=== PATIENT | male | born 1955 | race Caucasian/White ===

== ENCOUNTER 2016-06-11 11:11 | Outpatient (CLI) | payer OTHER ==
--- NOTE | 2016-06-11 12:30 | DIAGNOSTIC IMAGING REPORT ---
PROCEDURE: XR LUMBAR SPINE 5 VIEWS INDICATION: BILATERAL LOW BACK PAIN WITH RIGHT-SIDED SCIATICA TECHNIQUE: Five views. COMPARISON: None. FINDINGS: There is a severe spondylosis at L 2-3 with large posterior osteophytes. There is also spondylosis and a grade 1 spondylolisthesis at L4-5. IMPRESSION: 1. Severe spondylosis L2-3. 2. Spondylosis and a grade 1 spondylolisthesis at L4-5.
== END 2016-06-11 23:00 ==
LOC: XR SRH 11:11
DX: M47.816 Spondylosis without myelopathy or radiculopathy, lumbar region (principal); M43.16 Spondylolisthesis, lumbar region

== ENCOUNTER 2016-06-23 16:26 | Emergency (ER) | payer OTHER ==
--- NOTE | 2016-06-23 17:22 | DIAGNOSTIC IMAGING REPORT ---
PROCEDURE: XR CHEST 1 VIEW INDICATION: RUE WEAKNESS TECHNIQUE: Portable AP view 04:56 p.m. COMPARISON: None. FINDINGS: Lungs are clear. Heart and mediastinum are normal. Thorax is normal. Two anchors project for the left humerus IMPRESSION: 1. Negative chest.
--- NOTE | 2016-06-23 17:32 | DIAGNOSTIC IMAGING REPORT ---
PROCEDURE: CT HEAD WITHOUT CONTRAST INDICATION: Right-sided numbness and weakness x 2 days. TECHNIQUE: Noncontrast axial images with sagittal and coronal reformations. COMPARISON: None. FINDINGS: Normal sulci and ventricular system. Mild of white matter chronic ischemic changes. No evidence of acute intracranial process. Opacified left mastoid and partial opacification of the right mastoid. Mild left maxillary sinus disease. IMPRESSION: 1. No acute intracranial abnormality 2. Mild white matter chronic ischemic changes 3. Bilateral mastoid opacification suggestive of mastoiditis 4. Findings discussed with Dr. Ureña at 05:15 p.m.[facility] Standard Time
--- NOTE | 2016-06-23 17:32 | DIAGNOSTIC IMAGING REPORT ---
PROCEDURE: CT HEAD WITHOUT CONTRAST INDICATION: Right-sided numbness and weakness x 2 days. TECHNIQUE: Noncontrast axial images with sagittal and coronal reformations. COMPARISON: None. FINDINGS: Normal sulci and ventricular system. Mild of white matter chronic ischemic changes. No evidence of acute intracranial process. Opacified left mastoid and partial opacification of the right mastoid. Mild left maxillary sinus disease. IMPRESSION: 1. No acute intracranial abnormality 2. Mild white matter chronic ischemic changes 3. Bilateral mastoid opacification suggestive of mastoiditis 4. Findings discussed with Dr. Ureña at 05:15 p.m.[facility] Standard Time
--- NOTE | 2016-06-23 18:53 | DIAGNOSTIC IMAGING REPORT ---
PROCEDURE: XR CERVICAL SPINE 2 OR 3 VIEW INDICATION: PARESTHESIAS TECHNIQUE: Four views of the cervical spine were obtained. COMPARISON: None. FINDINGS: Cervical vertebral bodies are intact without fracture. There is mild to moderate anterior endplate spurring and uncovertebral joint hypertrophy from C4-C7, particularly severe at C5-6 and C6-7. There is severe disc space loss at C5-6 and C6-7 with endplate irregularity and sclerosis at these levels. Loss of normal cervical lordosis with slight retrolisthesis of C5 and C6 and anterolisthesis of C4-5. Mild disc height loss at C3-4 and C4-5. No significant scoliotic curvature. Moderate facet hypertrophy on the left at C4-5 and C5-6. Mild right carotid calcific atherosclerosis. No suspicious prevertebral soft tissue swelling. Patent airway. IMPRESSION: 1. Straightening of the normal cervical lordosis may be due to muscle spasm. 2. Slight kyphosis at the C5 level is likely secondary to chronic facet degeneration. 3. Severe disc and endplate degeneration at C5-6 and C6-7. 4. MRI recommended for patient's acute upper extremity radiculopathy.
--- NOTE | 2016-06-23 19:00 | ED NURSING NOTES ---
Clinical Report - Nurses [facility] [place] [address] 06/23/2016 16:27 Patient: AJIT HUMPHREYS TRIAGE Triage time 16:34. Acuity: LEVEL 4. Chief Complaint: RIGHT UPPER EXTREMITY TINGLING. 16:34 06/23/16. 16:34 06/23/16. Alert. No acute distress. ( Right arm tingling that occurred either last night or this AM. Pt states he possibly slept wrong. This pain might be from his sciatic pain that occurred last night radiating to right arm). SEPSIS SCREEN: Sepsis Screen. Negative (no infection suspected/documented). CHADWICK COMA SCORE: [place] Coma Scale: 15- eyes open spontaneously (4); best verbal response- oriented x 4 (5); best motor response- obeys commands (6). --16:41 Yanick Bear R.N. 16:34 06/23/16. BP: 188/99. HR: 76. RR: 15. O2 saturation: 100% on room air. Temp: 98.1 F (oral). --16:41 Yanick Bear R.N. Acuity: LEVEL 3. --16:41 Yanick Bear R.N. Weight: 106.5 kg stated. Height/Length: 73 inches Per Patient. BMI: 31. --16:38 Yanick Bear R.N. Medications BP MED . --16:40 Yanick Bear R.N. Sleep Medicine Oral. --16:40 Yanick Bear R.N. Medication/allergy information source: the patient. --16:41 Yanick Bear R.N. Allergies None. --16:40 Yanick Bear R.N. History Arrived by private vehicle. Historian: patient. Unaccompanied. Primary physician ([facility]). 16:34 06/23/16. No injury occurred. This occurred at an unknown time (Either last night or this AM). He has had numbness (Right wrist). Treatment MANAGER TITLE: None. PAST MEDICAL HX: Tetanus status: up-to-date. Immunizations: up-to-date. SOCIAL HX: Never smoker. No alcohol use or drug use. No infectious disease exposure. ABUSE ASSESSMENT: No report of abuse. FALL RISK ASSESSMENT: Fall risk assessment completed. No fall risk identified. NUTRITIONAL RISK ASSESSMENT: The nutritional risk assessment revealed no deficiencies. FUNCTIONAL ASSESSMENT: Functional assessment: no impairments noted. LEARNING NEEDS ASSESSMENT: The learning needs assessment revealed no barriers. SKIN INTEGRITY ASSESSMENT: Skin integrity risk assessment completed. No skin integrity risk identified. --16:41 Yanick Bear R.N. PROBLEMS: Hypertension. --16:40 Yanick Bear R.N. ADDITIONAL SURGERIES: Bicept Surgery. Laminectomy. Rotator Cuff Surgery. --16:40 Yanick Bear R.N. Assessment 16:34 06/23/16. --16:41 Yanick Bear R.N. Interventions 16:34 06/23/16. 16:34 06/23/16. ID and allergy band on patient. To treatment room. --16:41 Yanick Bear R.N. PHYSICAL ASSESSMENT 16:41 06/23/16. Ambulatory to room. GENERAL / NEURO / PSYCH: Oriented X 4. Alert. Appears in no acute distress. EXTREMITIES: Neuro-vascular status intact to the extremity. No upper extremity edema. Skin is non-tender on the extremities. Right wrist: (weakness). ( Left power ballast machine operator stronger than right power ballast machine operator). --16:41 Yanick Bear R.N. NURSING PROGRESS NOTES 16:42 06/23/16. The plan of care for this patient has been created. Cold pack applied. Neuro-vascular extremity check. Patient gowned. Reassurance given. Two patient identifiers checked. Call light placed in reach. Side rails up x 2. Bed placed in lowest position. Brakes of bed on. --16:42 Yanick Bear R.N. 16:42 06/23/16. Patient ready for evaluation- chart flagged and notification provided. --16:42 Yanick Bear R.N. 16:44 06/23/16. EKG time: (1646 PM). --16:44 Yanick Bear R.N. 16:44 06/23/16. ( MD aware of right hand weakness, nother deficits noted). --16:44 Yanick Bear R.N. 16:45 06/23/2016 Site #1 started via IV in the right antecubital space with an 18g angiocath; one attempt. Blood drawn: rainbow set. Labeled in the presence of the patient and sent to the lab. Saline lock flushed with 10 mL saline. --16:45 Yanick Bear R.N. 17:05 06/23/16. Patient transported to [place] by stretcher with [employer]. --17:05 Yanick Bear R.N. 17:43 06/23/16. Cardiac rhythm: normal sinus rhythm. --17:43 Yanick Bear R.N. 17:42 06/23/16. BP: 172/88. HR: 71. RR: 16. O2 saturation: 99% on room air. --17:43 Yanick Bear R.N. 18:46 06/23/16. --18:46 Yanick Bear R.N. 18:45 06/23/16. BP: 143/72. HR: 71. RR: 14. O2 saturation: 99%. --18:46 Yanick Bear R.N. DISPOSITION / DISCHARGE 19:06/23/2016 Site #1 removed upon discharge. Catheter intact. Bandage applied. --19:08 Yanick Bear R.N. 19:06/23/16. The goals identified in the patient's plan of care were met. No learning barriers present. Discharge instructions provided and reviewed with the patient. Reviewed warnings. Reviewed medication(s). Treatments reviewed. Patient verbalized understanding. Written instructions provided in Khmer. The patient was discharged by the physician. He was discharged home. He left the Emergency Department ambulatory and via private vehicle. Patient driving. FALL RISK ASSESSMENT: Fall risk assessment completed. No fall risk identified. --19:09 Yanick Bear R.N. 18:45 06/23/16. BP: 143/72. HR: 71. RR: 14. O2 saturation: 99%. --19:09 Yanick Bear R.N. 19:06/23/16. Departure time: 19:09. --19:09 Yanick Bear R.N. Locked/Released at 06/23/2016 19:11 by Yanick Bear R.N.
--- NOTE | 2016-06-23 19:00 | ED ORDER SUMMARY ---
..... Patient: AJIT HUMPHREYS OrderSheet [facility] VisitID: [id number] [place] [address] 61y, M Registration Date/Time: 06/23/2016 ORDER SHEET Weight: 106.5 kg (stated) Allergies: None GENERAL ORDERS: CBC w Diff Urgent (16:43 06/23/2016 JBoardley R.N. per protocol) (Ack 16:45 ADELAIDAoerner) (16:54 JBoardley R.N.) CMP Urgent (16:43 06/23/2016 JBoardley R.N. per protocol) (Ack 16:45 ADELAIDAoefátimaner) (16:54 JBoardley R.N.) POC Glucose (16:43 06/23/2016 JBoardley R.N. per protocol) (16:45 JBoardley R.N.) EKG - ER Stat (16:43 06/23/2016 JBoardley R.N. per protocol) (16:45 JBoardley R.N.) Chest 1V Urgent (16:49 06/23/2016 Jazmine MUNOZ) (Ack 16:56 Jeremiah) (17:06 JBoargomezy R.N.) University Relations Director (Continuous) (16:49 06/23/2016 Jazmine MUNOZ) (16:51 CONST[address]bel R.N.) CT Head wo Cont Urgent (16:49 06/23/2016 Jazmine MUNOZ) (Ack 16:56 Jeremiah) (17:06 JBmaksimy R.N.) PT with INR Urgent (16:49 06/23/2016 Jazmine MUNOZ) (Ack 16:56 Jeremiah) (17:06 Ish R.N.) PTT Urgent (16:49 06/23/2016 Jazmine MUNOZ) (Ack 16:56 Jeremiah) (17:06 Ish R.N.) Amylase Urgent (16:49 06/23/2016 Jazmine MUNOZ) (Ack 16:56 Jeremiah) (17:06 Ish R.N.) Lipase Urgent (16:49 06/23/2016 Jazmine MUNOZ) (Ack 16:56 ADELAIDAoevilma) (17:06 Ish R.N.) CPK Urgent (16:49 06/23/2016 Jazmine MUNOZ) (Ack 16:56 ADELAIDAoeredwardo) (17:06 Ish R.N.) Troponin-I Urgent (16:49 06/23/2016 Jazmine MUNOZ) (Ack 16:56 ADELAIDAoeredwardo) (17:06 Ish R.N.) Oxygen (2 L/min) (NC) (16:49 06/23/2016 Jazmine MUNOZ) (16:51 Jovon R.N.) Pulse oximeter (16:49 06/23/2016 Jazmine MUNOZ) (16:51 Jovon R.N.) EKG - ER Stat (16:49 06/23/2016 Jazmine MUNOZ) (16:51 Jovon R.N.) Cervical Spine 2 or 3V Urgent (17:53 06/23/2016 Jazmine MUNOZ) (Ack 17:57 ADELAIDAoevilma) (18:31 MCampbell) MEDICATION ORDERS: IV FLUIDS: IV Saline Lock (16:43 06/23/2016 Ish R.N. per protocol) (16:45 Ish R.N.) ORDER SHEET NOTES: [Electronically signed by Yanick Bear R.N. (19:11 06/23/2016)] [Electronically signed by Shmuel Ureña MD (09:17 06/25/2016)] [Electronically locked/signed by Yanick Bear R.N. (19:11 06/23/2016)]
--- NOTE | 2016-06-23 19:00 | ED CLINICAL REPORT ---
Clinical Report - Physicians/Mid Levels [facility] [address] [place] [address] 06/23/2016 16:27 Patient: AJIT HUMPHREYS Time Seen: 16:48. Arrived- By private vehicle. Historian- patient. HISTORY OF PRESENT ILLNESS Chief Complaint: WEAKNESS and PARESTHESIA. The patient has had new onset of constant weakness of the right arm (moderate) and right hand (moderate). He has had new onset of tingling of the right hand (moderate). No impaired speech or swallowing, visual disturbance or recent fall. No difficulty walking. This started last night and is still present. It was abrupt in onset and has been constant. At its maximum deficit described as moderate. When seen in the E.D.,deficit described as moderate. No dizziness. (The patient has some pain in his neck that is radiating down into his right arm. He thinks that he may have "slept on it wrong."). REVIEW OF SYSTEMS No chills, fever, sweats, calf pain or chest pain. No cough, difficulty breathing, pedal edema, palpitations or abdominal pain. No dizziness or headache. He has had lower back pain (chronically). It has been similar to previous symptoms. He reports that arrangements are being made for an MRI of his low back pain and "sciatica". All systems otherwise negative, except as recorded above. SOCIAL HISTORY Never smoker. No alcohol use or drug use. FAMILY HISTORY Denies family medical history. ADDITIONAL NOTES The nursing notes have been reviewed. PHYSICAL EXAM Vital Signs: 06/23/2016 16:34 BP: 188/99. HR: 76. RR: 15. O2 saturation: 100%. Temp: 98.1 F. Have been reviewed. Appearance: Alert. Eyes: Pupils equal, round and reactive to light. ENT: Airway intact. Pharynx normal. Neck: Normal inspection. Neck supple. No meningeal signs or carotid bruit. CVS: Normal heart rate and rhythm. Heart sounds normal. Respiratory: No respiratory distress. Breath sounds normal. Abdomen: Soft and nontender. No organomegaly. Back: Normal inspection. Skin: Skin warm and dry. Normal skin color. Normal skin turgor. Extremities: Extremities exhibit normal ROM. No calf tenderness. No lower extremity edema. Neuro: Alert. Oriented X 3. Mood/affect normal. Speech normal. Cranial nerves normal (as tested). He has had pain-related weakness of the right arm (moderate) and right hand (moderate). No sensory deficit. LABS, X-RAYS, AND EKG EKG: Normal sinus rhythm. Rate: 74. Left anterior fascicular block. Prior EKG unavailable. The study has been independently viewed by me. C-Spine X-rays: (IMPRESSION: 1. Straightening of the normal cervical lordosis may be due to muscle spasm. 2. Slight kyphosis at the C5 level is likely secondary to chronic facet degeneration. 3. Severe disc and endplate degeneration at C5-6 and C6-7. 4. MRI recommended for patient's acute upper extremity radiculopathy.). The X-rays were interpreted contemporaneously by me and discussed with the radiologist. Chest X-ray: (IMPRESSION: 1. Negative chest.). The X-rays were interpreted by the radiologist and contemporaneously by me. CT Head: (IMPRESSION: 1. No acute intracranial abnormality 2. Mild white matter chronic ischemic changes 3. Bilateral mastoid opacification suggestive of mastoiditis). The study was interpreted contemporaneously by me and discussed with the radiologist. Laboratory Tests: CBC w Diff: (ROBERT: 06/23/2016 16:42) ( MsgRcvd 06/23/2016 17:12) Final results Test Result Flag Units (Reference) WHITE BLOOD COUNT 7.7 K/uL (4.5-11.5) RED BLOOD COUNT 5.50 M/uL (4.50-5.90) HEMOGLOBIN 17.3 gm/dL (13.5-17.5) HEMATOCRIT 50.2 % (41.0-53.0) MEAN CELL VOLUME 91 fL (80-100) MEAN CORPUSCULAR HGB 32 pg (26-34) MEAN CORPUSCULAR HGB CONC 35 g/dL (31-37) RED CELL DISTRIBUTION WIDTH 12.9 % (11.6-14.8) PLATELET COUNT 119 L K/uL (150-400) NEUTROPHIL % 62.1 % (50-75) LYMPH % 27.1 % (25-40) MONO % 8.7 % (3-14) EOSINOPHIL % 1.8 % (0-4) BASOPHIL % 0.3 % (0-2) PT with INR: (ROBERT: 06/23/2016 16:42) ( [facility] 06/23/2016 17:27) Final results Test Result Flag Units (Reference) INR 0.9 (0.8-1.2) Low Intensity Therapy: INR 1.5-2.0 PT range 18.5-23.1Mod.Intensity Therapy: INR 2.0-3.0 PT range 23.1-31.5High Intensity Therapy: INR 2.5-3.5 PT range 27.4-35.5High Intensity Therapy 2: INR 3.0-4.0 PT range 31.5-39.3 APTT 38 H SECONDS (24-34) Lipase: (ROBERT: 06/23/2016 16:42) ( [facility] 06/23/2016 17:26) Final results Test Result Flag Units (Reference) LIPASE 275 U/L (73-393) AMYLASE 29 U/L (25-115) CPK 151 U/L (24-260) TROPONIN I <0.05 ng/mL (0.00-1.5) TROPONIN REFERENCE RANGE:<0.1 NEGATIVE0.1-1.5 INDETERMINANT>1.5 POSITIVE CMP: (ROBERT: 06/23/2016 16:42) ( [facility] 06/23/2016 17:27) Final results Test Result Flag Units (Reference) GLUCOSE 316 H mg/dL (70-110) BUN 15 mg/dL (7-18) CREATININE 1.0 mg/dL (0.6-1.3) Estimated GFR >60 mL/min Estimated GFR- >60 mL/min Note: Persistent reduction over 3 months in eGFR<60 mL/min/1.73 m2 defines CKD. Patients with eGFR values>=60 mL/min/1.73 m2 may also have CKD if evidence ofpersistent proteinuria. Additional information may be foundat www.kidney.org. SODIUM 140 mmol/L (136-145) POTASSIUM 4.3 mmol/L (3.5-5.1) CHLORIDE 103 mmol/L (98-107) CARBON DIOXIDE 26 mmol/L (21-32) CALCIUM 9.1 mg/dL (8.5-10.1) TOTAL PROTEIN 8.0 g/dL (6.4-8.2) ALBUMIN 3.7 g/dL (3.3-5.0) BILIRUBIN, TOTAL 0.5 mg/dL (0.0-1.0) ALKALINE PHOSPHATASE 164 H U/L (46-116) AST (SGOT) 55 H U/L (15-37) ALT (SGPT) 92 H U/L (12-78) . PROGRESS AND PROCEDURES Course of Care: Patient is stable. Patient/family counseled. Old medical records ordered. Disposition: Discharged. Condition: stable. CLINICAL IMPRESSION Acute right cervical radiculopathy with motor deficit. INSTRUCTIONS No driving or operating machinery while taking medication. (Ask your doctor to help to arrange an MRI of your neck as discussed.). Warnings: Further evaluation is necessary. GENERAL WARNINGS: Return or contact your physician immediately if your condition worsens or changes unexpectedly, if not improving as expected, or if other problems arise. Your Current Medications: CONTINUE TAKING THE FOLLOWING MEDICATIONS: BP MED *. CONTINUE TAKING THE FOLLOWING MEDICATIONS UNTIL YOU CHECK WITH YOUR PHYSICIAN: Sleep Medicine Oral. Prescription Medications: Hydrocodone/APAP 5mg/325mg: take 1 to 2 orally every 6 hours as needed for pain. Dispense fifteen (15). No refills. Understanding of the discharge instructions verbalized by patient. Follow-up with: [facility], , , [address], , [place], [address] (Electronically signed by Shmuel Ureña MD 06/25/2016 9:17)
--- NOTE | 2016-06-23 19:00 | ED NURSING NOTES ---
Clinical Report - Nurses [facility] [place] [address] 06/23/2016 16:27 Patient: AJIT HUMPHREYS TRIAGE Triage time 16:34. Acuity: LEVEL 4. Chief Complaint: RIGHT UPPER EXTREMITY TINGLING. 16:34 06/23/16. 16:34 06/23/16. Alert. No acute distress. ( Right arm tingling that occurred either last night or this AM. Pt states he possibly slept wrong. This pain might be from his sciatic pain that occurred last night radiating to right arm). SEPSIS SCREEN: Sepsis Screen. Negative (no infection suspected/documented). [place]WICK COMA SCORE: [place] Coma Scale: 15- eyes open spontaneously (4); best verbal response- oriented x 4 (5); best motor response- obeys commands (6). --16:41 Yanick Bear R.N. 16:34 06/23/16. BP: 188/99. HR: 76. RR: 15. O2 saturation: 100% on room air. Temp: 98.1 F (oral). --16:41 Yanick Bear R.N. Acuity: LEVEL 3. --16:41 Yanick Bear R.N. Weight: 106.5 kg stated. Height/Length: 73 inches Per Patient. BMI: 31. --16:38 Yanick Bear R.N. Medications BP MED . --16:40 Yanick Bear R.N. Sleep Medicine Oral. --16:40 Yanick Bear R.N. Medication/allergy information source: the patient. --16:41 Yanick Bear R.N. Allergies None. --16:40 Yanick Bear R.N. History Arrived by private vehicle. Historian: patient. Unaccompanied. Primary physician ([facility]). 16:34 06/23/16. No injury occurred. This occurred at an unknown time (Either last night or this AM). He has had numbness (Right wrist). Treatment IRRIGATION SERVICE TECHNICIAN: None. PAST MEDICAL HX: Tetanus status: up-to-date. Immunizations: up-to-date. SOCIAL HX: Never smoker. No alcohol use or drug use. No infectious disease exposure. ABUSE ASSESSMENT: No report of abuse. FALL RISK ASSESSMENT: Fall risk assessment completed. No fall risk identified. NUTRITIONAL RISK ASSESSMENT: The nutritional risk assessment revealed no deficiencies. FUNCTIONAL ASSESSMENT: Functional assessment: no impairments noted. LEARNING NEEDS ASSESSMENT: The learning needs assessment revealed no barriers. SKIN INTEGRITY ASSESSMENT: Skin integrity risk assessment completed. No skin integrity risk identified. --16:41 Yanick Bear R.N. PROBLEMS: Hypertension. --16:40 Yanick Bear R.N. ADDITIONAL SURGERIES: Bicept Surgery. Laminectomy. Rotator Cuff Surgery. --16:40 Yanick Bear R.N. Assessment 16:34 06/23/16. --16:41 Yanick Bear R.N. Interventions 16:34 06/23/16. 16:34 06/23/16. ID and allergy band on patient. To treatment room. --16:41 Yanick Bear R.N. PHYSICAL ASSESSMENT 16:41 06/23/16. Ambulatory to room. GENERAL / NEURO / PSYCH: Oriented X 4. Alert. Appears in no acute distress. EXTREMITIES: Neuro-vascular status intact to the extremity. No upper extremity edema. Skin is non-tender on the extremities. Right wrist: (weakness). ( Left photographic intelligence officer stronger than right photographic intelligence officer). --16:41 Yanick Bear R.N. NURSING PROGRESS NOTES 16:42 06/23/16. The plan of care for this patient has been created. Cold pack applied. Neuro-vascular extremity check. Patient gowned. Reassurance given. Two patient identifiers checked. Call light placed in reach. Side rails up x 2. Bed placed in lowest position. Brakes of bed on. --16:42 Yanick Bear R.N. 16:42 06/23/16. Patient ready for evaluation- chart flagged and notification provided. --16:42 Yanick Bear R.N. 16:44 06/23/16. EKG time: (1646 PM). --16:44 Yanick Bear R.N. 16:44 06/23/16. ( MD aware of right hand weakness, nother deficits noted). --16:44 Yanick Bear R.N. 16:45 06/23/2016 Site #1 started via IV in the right antecubital space with an 18g angiocath; one attempt. Blood drawn: rainbow set. Labeled in the presence of the patient and sent to the lab. Saline lock flushed with 10 mL saline. --16:45 Yanick Bear R.N. 17:05 06/23/16. Patient transported to [place] by stretcher with [employer]. --17:05 Yanick Bear R.N. 17:43 06/23/16. Cardiac rhythm: normal sinus rhythm. --17:43 Yanick Bear R.N. 17:42 06/23/16. BP: 172/88. HR: 71. RR: 16. O2 saturation: 99% on room air. --17:43 Yanick Bear R.N. 18:46 06/23/16. --18:46 Yanick Bear R.N. 18:45 06/23/16. BP: 143/72. HR: 71. RR: 14. O2 saturation: 99%. --18:46 Yanick Bear R.N. DISPOSITION / DISCHARGE 19:06/23/2016 Site #1 removed upon discharge. Catheter intact. Bandage applied. --19:08 Yanick Bear R.N. 19:06/23/16. The goals identified in the patient's plan of care were met. No learning barriers present. Discharge instructions provided and reviewed with the patient. Reviewed warnings. Reviewed medication(s). Treatments reviewed. Patient verbalized understanding. Written instructions provided in Yi. The patient was discharged by the physician. He was discharged home. He left the Emergency Department ambulatory and via private vehicle. Patient driving. FALL RISK ASSESSMENT: Fall risk assessment completed. No fall risk identified. --19:09 Yanick Bear R.N. 18:45 06/23/16. BP: 143/72. HR: 71. RR: 14. O2 saturation: 99%. --19:09 Yanick Bear R.N. 19:06/23/16. Departure time: 19:09. --19:09 Yanick Bear R.N. Locked/Released at 06/23/2016 19:11 by Yanick Bear R.N.
--- NOTE | 2016-06-23 19:00 | ED CLINICAL REPORT ---
Clinical Report - Physicians/Mid Levels [facility] [address] [place] [address] 06/23/2016 16:27 Patient: AJIT HUMPHREYS Time Seen: 16:48. Arrived- By private vehicle. Historian- patient. HISTORY OF PRESENT ILLNESS Chief Complaint: WEAKNESS and PARESTHESIA. The patient has had new onset of constant weakness of the right arm (moderate) and right hand (moderate). He has had new onset of tingling of the right hand (moderate). No impaired speech or swallowing, visual disturbance or recent fall. No difficulty walking. This started last night and is still present. It was abrupt in onset and has been constant. At its maximum deficit described as moderate. When seen in the E.D.,deficit described as moderate. No dizziness. (The patient has some pain in his neck that is radiating down into his right arm. He thinks that he may have "slept on it wrong."). REVIEW OF SYSTEMS No chills, fever, sweats, calf pain or chest pain. No cough, difficulty breathing, pedal edema, palpitations or abdominal pain. No dizziness or headache. He has had lower back pain (chronically). It has been similar to previous symptoms. He reports that arrangements are being made for an MRI of his low back pain and "sciatica". All systems otherwise negative, except as recorded above. SOCIAL HISTORY Never smoker. No alcohol use or drug use. FAMILY HISTORY Denies family medical history. ADDITIONAL NOTES The nursing notes have been reviewed. PHYSICAL EXAM Vital Signs: 06/23/2016 16:34 BP: 188/99. HR: 76. RR: 15. O2 saturation: 100%. Temp: 98.1 F. Have been reviewed. Appearance: Alert. Eyes: Pupils equal, round and reactive to light. ENT: Airway intact. Pharynx normal. Neck: Normal inspection. Neck supple. No meningeal signs or carotid bruit. CVS: Normal heart rate and rhythm. Heart sounds normal. Respiratory: No respiratory distress. Breath sounds normal. Abdomen: Soft and nontender. No organomegaly. Back: Normal inspection. Skin: Skin warm and dry. Normal skin color. Normal skin turgor. Extremities: Extremities exhibit normal ROM. No calf tenderness. No lower extremity edema. Neuro: Alert. Oriented X 3. Mood/affect normal. Speech normal. Cranial nerves normal (as tested). He has had pain-related weakness of the right arm (moderate) and right hand (moderate). No sensory deficit. LABS, X-RAYS, AND EKG EKG: Normal sinus rhythm. Rate: 74. Left anterior fascicular block. Prior EKG unavailable. The study has been independently viewed by me. C-Spine X-rays: (IMPRESSION: 1. Straightening of the normal cervical lordosis may be due to muscle spasm. 2. Slight kyphosis at the C5 level is likely secondary to chronic facet degeneration. 3. Severe disc and endplate degeneration at C5-6 and C6-7. 4. MRI recommended for patient's acute upper extremity radiculopathy.). The X-rays were interpreted contemporaneously by me and discussed with the radiologist. Chest X-ray: (IMPRESSION: 1. Negative chest.). The X-rays were interpreted by the radiologist and contemporaneously by me. CT Head: (IMPRESSION: 1. No acute intracranial abnormality 2. Mild white matter chronic ischemic changes 3. Bilateral mastoid opacification suggestive of mastoiditis). The study was interpreted contemporaneously by me and discussed with the radiologist. Laboratory Tests: CBC w Diff: (ROBERT: 06/23/2016 16:42) ( MsgRcvd 06/23/2016 17:12) Final results Test Result Flag Units (Reference) WHITE BLOOD COUNT 7.7 K/uL (4.5-11.5) RED BLOOD COUNT 5.50 M/uL (4.50-5.90) HEMOGLOBIN 17.3 gm/dL (13.5-17.5) HEMATOCRIT 50.2 % (41.0-53.0) MEAN CELL VOLUME 91 fL (80-100) MEAN CORPUSCULAR HGB 32 pg (26-34) MEAN CORPUSCULAR HGB CONC 35 g/dL (31-37) RED CELL DISTRIBUTION WIDTH 12.9 % (11.6-14.8) PLATELET COUNT 119 L K/uL (150-400) NEUTROPHIL % 62.1 % (50-75) LYMPH % 27.1 % (25-40) MONO % 8.7 % (3-14) EOSINOPHIL % 1.8 % (0-4) BASOPHIL % 0.3 % (0-2) PT with INR: (ROBERT: 06/23/2016 16:42) ( [facility] 06/23/2016 17:27) Final results Test Result Flag Units (Reference) INR 0.9 (0.8-1.2) Low Intensity Therapy: INR 1.5-2.0 PT range 18.5-23.1Mod.Intensity Therapy: INR 2.0-3.0 PT range 23.1-31.5High Intensity Therapy: INR 2.5-3.5 PT range 27.4-35.5High Intensity Therapy 2: INR 3.0-4.0 PT range 31.5-39.3 APTT 38 H SECONDS (24-34) Lipase: (ROBERT: 06/23/2016 16:42) ( [facility] 06/23/2016 17:26) Final results Test Result Flag Units (Reference) LIPASE 275 U/L (73-393) AMYLASE 29 U/L (25-115) CPK 151 U/L (24-260) TROPONIN I <0.05 ng/mL (0.00-1.5) TROPONIN REFERENCE RANGE:<0.1 NEGATIVE0.1-1.5 INDETERMINANT>1.5 POSITIVE CMP: (ROBERT: 06/23/2016 16:42) ( [facility] 06/23/2016 17:27) Final results Test Result Flag Units (Reference) GLUCOSE 316 H mg/dL (70-110) BUN 15 mg/dL (7-18) CREATININE 1.0 mg/dL (0.6-1.3) Estimated GFR >60 mL/min Estimated GFR- >60 mL/min Note: Persistent reduction over 3 months in eGFR<60 mL/min/1.73 m2 defines CKD. Patients with eGFR values>=60 mL/min/1.73 m2 may also have CKD if evidence ofpersistent proteinuria. Additional information may be foundat www.kidney.org. SODIUM 140 mmol/L (136-145) POTASSIUM 4.3 mmol/L (3.5-5.1) CHLORIDE 103 mmol/L (98-107) CARBON DIOXIDE 26 mmol/L (21-32) CALCIUM 9.1 mg/dL (8.5-10.1) TOTAL PROTEIN 8.0 g/dL (6.4-8.2) ALBUMIN 3.7 g/dL (3.3-5.0) BILIRUBIN, TOTAL 0.5 mg/dL (0.0-1.0) ALKALINE PHOSPHATASE 164 H U/L (46-116) AST (SGOT) 55 H U/L (15-37) ALT (SGPT) 92 H U/L (12-78) . PROGRESS AND PROCEDURES Course of Care: Patient is stable. Patient/family counseled. Old medical records ordered. Disposition: Discharged. Condition: stable. CLINICAL IMPRESSION Acute right cervical radiculopathy with motor deficit. INSTRUCTIONS No driving or operating machinery while taking medication. (Ask your doctor to help to arrange an MRI of your neck as discussed.). Warnings: Further evaluation is necessary. GENERAL WARNINGS: Return or contact your physician immediately if your condition worsens or changes unexpectedly, if not improving as expected, or if other problems arise. Your Current Medications: CONTINUE TAKING THE FOLLOWING MEDICATIONS: BP MED *. CONTINUE TAKING THE FOLLOWING MEDICATIONS UNTIL YOU CHECK WITH YOUR PHYSICIAN: Sleep Medicine Oral. Prescription Medications: Hydrocodone/APAP 5mg/325mg: take 1 to 2 orally every 6 hours as needed for pain. Dispense fifteen (15). No refills. Understanding of the discharge instructions verbalized by patient. Follow-up with: [facility], , , [address], , [place], [address] (Electronically signed by Shmuel Ureña MD 06/25/2016 9:17)
--- NOTE | 2016-06-23 19:00 | ED ORDER SUMMARY ---
..... Patient: AJIT HUMPHREYS OrderSheet [facility] VisitID: [id number] [place] [address] 61y, M Registration Date/Time: 06/23/2016 ORDER SHEET Weight: 106.5 kg (stated) Allergies: None GENERAL ORDERS: CBC w Diff Urgent (16:43 06/23/2016 JBoardley R.N. per protocol) (Ack 16:45 ADELAIDAoerner) (16:54 JBoardley R.N.) CMP Urgent (16:43 06/23/2016 JBoardley R.N. per protocol) (Ack 16:45 ADELAIDAoefátimaner) (16:54 JBoardley R.N.) POC Glucose (16:43 06/23/2016 JBoardley R.N. per protocol) (16:45 JBoardley R.N.) EKG - ER Stat (16:43 06/23/2016 JBoardley R.N. per protocol) (16:45 JBoardley R.N.) Chest 1V Urgent (16:49 06/23/2016 Jazmine MUNOZ) (Ack 16:56 Jeremiah) (17:06 JBoargomezy R.N.) Manager Audio (Continuous) (16:49 06/23/2016 Jazmine MUNOZ) (16:51 CON[address]bel R.N.) CT Head wo Cont Urgent (16:49 06/23/2016 Jazmine MUNOZ) (Ack 16:56 Jeremiah) (17:06 JBmaksimy R.N.) PT with INR Urgent (16:49 06/23/2016 Jazmine MUNOZ) (Ack 16:56 Jeremiah) (17:06 Ish R.N.) PTT Urgent (16:49 06/23/2016 Jazmine MUNOZ) (Ack 16:56 Jeremiah) (17:06 Ish R.N.) Amylase Urgent (16:49 06/23/2016 Jazmine MUNOZ) (Ack 16:56 Jeremiah) (17:06 Ish R.N.) Lipase Urgent (16:49 06/23/2016 Jazmine MUNOZ) (Ack 16:56 ADELAIDAoevilma) (17:06 Ish R.N.) CPK Urgent (16:49 06/23/2016 Jazmine MUNOZ) (Ack 16:56 ADELAIDAoeredwardo) (17:06 Ish R.N.) Troponin-I Urgent (16:49 06/23/2016 Jazmine MUNOZ) (Ack 16:56 ADELAIDAoeredwardo) (17:06 Ish R.N.) Oxygen (2 L/min) (NC) (16:49 06/23/2016 Jazmine MUNOZ) (16:51 Jovon R.N.) Pulse oximeter (16:49 06/23/2016 Jazmine MUNOZ) (16:51 Jovon R.N.) EKG - ER Stat (16:49 06/23/2016 Jazmine MUNOZ) (16:51 Jovon R.N.) Cervical Spine 2 or 3V Urgent (17:53 06/23/2016 Jazmine MUNOZ) (Ack 17:57 ADELAIDAoevilma) (18:31 MCampbell) MEDICATION ORDERS: IV FLUIDS: IV Saline Lock (16:43 06/23/2016 Ish R.N. per protocol) (16:45 Ish R.N.) ORDER SHEET NOTES: [Electronically signed by Yanick Bear R.N. (19:11 06/23/2016)] [Electronically signed by Shmuel Ureña MD (09:17 06/25/2016)] [Electronically locked/signed by Yanick Bear R.N. (19:11 06/23/2016)]
--- NOTE | 2016-06-25 09:17 | ED MED RECONCILIATION SUMMARY ---
Patient: AJIT HUMPHREYS Medication Reconciliation Report [facility] VisitID: [id number] [address] [place] [address] 61y, M Registration Date/Time: 06/23/2016 Weight: 106.5 kg Height/Length: 73 in. BMI: 31.0 ALLERGIES: None The patient's Home Medications are listed below: CONTINUE TAKING THE FOLLOWING MEDICATIONS: BP MED CONTINUE TAKING THE FOLLOWING MEDICATIONS UNTIL YOU CHECK WITH YOUR PHYSICIAN: Sleep Medicine Oral The source(s) of the original Home Medication information: patient The following Medications were given to the patient in the Emergency Department: None. The following Medications were prescribed to the patient: Hydrocodone/APAP 5mg/325mg: take 1 to 2 orally every 6 hours as needed for pain. Dispense fifteen (15). No refills. -- Shmuel Ureña MD
--- NOTE | 2016-06-25 09:17 | ED DISCHARGE INSTRUCTIONS ---
Patient: AJIT HUMPHREYS General Instructions [facility] VisitID: [id number] [address] [place] [address] 61y, M Registration Date/Time: 06/23/2016 Acute right cervical radiculopathy with motor deficit. INSTRUCTIONS No driving or operating machinery while taking medication. (Ask your doctor to help to arrange an MRI of your neck as discussed.). Warnings: Further evaluation is necessary. GENERAL WARNINGS: Return or contact your physician immediately if your condition worsens or changes unexpectedly, if not improving as expected, or if other problems arise. Your Current Medications: CONTINUE TAKING THE FOLLOWING MEDICATIONS: BP MED *. CONTINUE TAKING THE FOLLOWING MEDICATIONS UNTIL YOU CHECK WITH YOUR PHYSICIAN: Sleep Medicine Oral. Prescription Medications: Hydrocodone/APAP 5mg/325mg: take 1 to 2 orally every 6 hours as needed for pain. Dispense fifteen (15). No refills. Understanding of the discharge instructions verbalized by patient. Follow-up with: [facility], , , [address], , [place], [address] ADDITIONAL INFORMATION Pinched Nerve, Neck [Cervical Radiculopathy] A pinched nerve in the neck (also called "Cervical Radiculopathy") is caused by irritation or pressure on the nerve that goes from the spinal cord to the arm. This may be caused by a bulging spinal disk (a "spinal disk" is the cushion between each spinal bone) or narrowing of the spinal joint due to arthritis. This can cause numbness, tingling, deep aching or electrical shooting pain from the side of the neck all the way down to the fingers on one side. A pinched nerve may begin after a sudden turning/bending force (such as in a car accident) or after a simple awkward movement. In either case, muscle spasm is commonly present and contributes to the pain. Home Care: 1) Rest and relax the muscles. Use a comfortable pillow that supports the head and keeps the spine in a neutral position. The position of the head should not be tilted forward or backward. A rolled up towel may help for a custom fit. 2) Some persons find relief with heat (hot shower, hot bath or heating pad) and massage, while others prefer cold packs (crushed or cubed ice in a plastic bag, wrapped in a towel) . Try both and use the method that feels best for 20 minutes several times a day. 3) You may use acetaminophen (Tylenol) or ibuprofen (Motrin, Advil) to control pain, unless another medicine was prescribed. [ NOTE : If you have chronic liver or kidney disease or ever had a stomach ulcer or GI bleeding, talk with your doctor before using these medicines.] Follow Up with your physician or this facility if your symptoms do not show signs of improvement after one week. Further testing may be needed. [NOTE: If x-rays were taken, they will be reviewed by a radiologist. You will be notified of any new findings that may affect your care.] Get Prompt Medical Attention if any of the following occur: -- Pain becomes worse and not controlled by prescribed pain medicine -- Weakness in the arm -- Increasing numbness in the arm -- Trouble breathing or swallowing Hydrocodone Bitartrate, Acetaminophen Oral tablet What is this medicine? ACETAMINOPHEN; HYDROCODONE (a set a RACHEL julianne fen; louise droe KOE done) is a pain reliever. It is used to treat mild to moderate pain. How should I use this medicine? Take this medicine by mouth. Swallow it with a full glass of water. Follow the directions on the prescription label. If the medicine upsets your stomach, take the medicine with food or milk. Do not take more than you are told to take. Talk to your cloth hand regarding the use of this medicine in children. This medicine is not approved for use in children. What side effects may I notice from receiving this medicine? Side effects that you should report to your doctor or health post acute care nurse as soon as possible: allergic reactions like skin rash, itching or hives, swelling of the face, lips, or tongue breathing problems confusion feeling faint or lightheaded, falls stomach pain yellowing of the eyes or skin Side effects that usually do not require medical attention (report to your doctor or health post acute care nurse if they continue or are bothersome): nausea, vomiting stomach upset What may interact with this medicine? alcohol antihistamines isoniazid medicines for depression, anxiety, or psychotic disturbances medicines for sleep muscle relaxants naltrexone narcotic medicines (opiates) for pain phenobarbital ritonavir tramadol What if I miss a dose? If you miss a dose, take it as soon as you can. If it is almost time for your next dose, take only that dose. Do not take double or extra doses. Where should I keep my medicine? Keep out of the reach of children. This medicine can be abused. Keep your medicine in a safe place to protect it from theft. Do not share this medicine with anyone. Selling or giving away this medicine is dangerous and against the law. Store at room temperature between 15 and 30 degrees C (59 and 86 degrees F). Protect from light. Keep container tightly closed. Throw away any unused medicine after the expiration date. Discard unused medicine and used packaging carefully. Pets and children can be harmed if they find used or lost packages. What should I tell my health care provider before I take this medicine? They need to know if you have any of these conditions: brain tumor Crohn's disease, inflammatory bowel disease, or ulcerative colitis drink more than 3 alcohol-containing drinks per day drug abuse or addiction head injury heart or circulation problems kidney disease or problems going to the bathroom liver disease lung disease, asthma, or breathing problems an unusual or allergic reaction to acetaminophen, hydrocodone, other opioid analgesics, other medicines, foods, dyes, or preservatives or trying to get breast-feeding What should I watch for while using this medicine? Tell your doctor or health post acute care nurse if your pain does not go away, if it gets worse, or if you have new or a different type of pain. You may develop tolerance to the medicine. Tolerance means that you will need a higher dose of the medicine for pain relief. Tolerance is normal and is expected if you take the medicine for a long time. Do not suddenly stop taking your medicine because you may develop a severe reaction. Your body becomes used to the medicine. This does NOT mean you are addicted. Addiction is a behavior related to getting and using a drug for a non-medical reason. If you have pain, you have a medical reason to take pain medicine. Your doctor will tell you how much medicine to take. If your doctor wants you to stop the medicine, the dose will be slowly lowered over time to avoid any side effects. You may get drowsy or dizzy when you first start taking the medicine or change doses. Do not drive, use machinery, or do anything that may be dangerous until you know how the medicine affects you. Stand or sit up slowly. There are different types of narcotic medicines (opiates) for pain. If you take more than one type at the same time, you may have more side effects. Give your health care provider a list of all medicines you use. Your doctor will tell you how much medicine to take. Do not take more medicine than directed. Call emergency for help if you have problems breathing. The medicine will cause constipation. Try to have a bowel movement at least every 2 to 3 days. If you do not have a bowel movement for 3 days, call your doctor or health post acute care nurse. Too much acetaminophen can be very dangerous. Do not take Tylenol (acetaminophen) or medicines that contain acetaminophen with this medicine. Many non-prescription medicines contain acetaminophen. Always read the labels carefully. You have been given the following additional information: Radiculopathy, Cervical Hydrocodone Bitartrate, Acetaminophen Oral tablet No driving or operating machinery while taking medication. (Electronically signed by Shmuel Ureña MD 06/25/2016 9:17)
--- NOTE | 2016-06-25 09:17 | ED MAR SUMMARY ---
..... Medication Administration Record [facility] [address], [place] [id number] Patient: AJIT HUMPHREYS Visit ID: [id number] 61y, M Weight: 106.5 kg Height/Length: 73 in BMI: 31 ALLERGIES: None
--- NOTE | 2016-06-25 09:17 | ED DISCHARGE INSTRUCTIONS ---
Patient: AJIT HUMPHREYS General Instructions [facility] VisitID: [id number] [address] [place] [address] 61y, M Registration Date/Time: 06/23/2016 Acute right cervical radiculopathy with motor deficit. INSTRUCTIONS No driving or operating machinery while taking medication. (Ask your doctor to help to arrange an MRI of your neck as discussed.). Warnings: Further evaluation is necessary. GENERAL WARNINGS: Return or contact your physician immediately if your condition worsens or changes unexpectedly, if not improving as expected, or if other problems arise. Your Current Medications: CONTINUE TAKING THE FOLLOWING MEDICATIONS: BP MED *. CONTINUE TAKING THE FOLLOWING MEDICATIONS UNTIL YOU CHECK WITH YOUR PHYSICIAN: Sleep Medicine Oral. Prescription Medications: Hydrocodone/APAP 5mg/325mg: take 1 to 2 orally every 6 hours as needed for pain. Dispense fifteen (15). No refills. Understanding of the discharge instructions verbalized by patient. Follow-up with: [facility], , , [address], , [place], [id number] ADDITIONAL INFORMATION Pinched Nerve, Neck [Cervical Radiculopathy] A pinched nerve in the neck (also called "Cervical Radiculopathy") is caused by irritation or pressure on the nerve that goes from the spinal cord to the arm. This may be caused by a bulging spinal disk (a "spinal disk" is the cushion between each spinal bone) or narrowing of the spinal joint due to arthritis. This can cause numbness, tingling, deep aching or electrical shooting pain from the side of the neck all the way down to the fingers on one side. A pinched nerve may begin after a sudden turning/bending force (such as in a car accident) or after a simple awkward movement. In either case, muscle spasm is commonly present and contributes to the pain. Home Care: 1) Rest and relax the muscles. Use a comfortable pillow that supports the head and keeps the spine in a neutral position. The position of the head should not be tilted forward or backward. A rolled up towel may help for a custom fit. 2) Some persons find relief with heat (hot shower, hot bath or heating pad) and massage, while others prefer cold packs (crushed or cubed ice in a plastic bag, wrapped in a towel) . Try both and use the method that feels best for 20 minutes several times a day. 3) You may use acetaminophen (Tylenol) or ibuprofen (Motrin, Advil) to control pain, unless another medicine was prescribed. [ NOTE : If you have chronic liver or kidney disease or ever had a stomach ulcer or GI bleeding, talk with your doctor before using these medicines.] Follow Up with your physician or this facility if your symptoms do not show signs of improvement after one week. Further testing may be needed. [NOTE: If x-rays were taken, they will be reviewed by a radiologist. You will be notified of any new findings that may affect your care.] Get Prompt Medical Attention if any of the following occur: -- Pain becomes worse and not controlled by prescribed pain medicine -- Weakness in the arm -- Increasing numbness in the arm -- Trouble breathing or swallowing Hydrocodone Bitartrate, Acetaminophen Oral tablet What is this medicine? ACETAMINOPHEN; HYDROCODONE (a set a RACHEL julianne fen; louise droe KOE done) is a pain reliever. It is used to treat mild to moderate pain. How should I use this medicine? Take this medicine by mouth. Swallow it with a full glass of water. Follow the directions on the prescription label. If the medicine upsets your stomach, take the medicine with food or milk. Do not take more than you are told to take. Talk to your fundraising officer regarding the use of this medicine in children. This medicine is not approved for use in children. What side effects may I notice from receiving this medicine? Side effects that you should report to your doctor or health director medicare sales as soon as possible: allergic reactions like skin rash, itching or hives, swelling of the face, lips, or tongue breathing problems confusion feeling faint or lightheaded, falls stomach pain yellowing of the eyes or skin Side effects that usually do not require medical attention (report to your doctor or health director medicare sales if they continue or are bothersome): nausea, vomiting stomach upset What may interact with this medicine? alcohol antihistamines isoniazid medicines for depression, anxiety, or psychotic disturbances medicines for sleep muscle relaxants naltrexone narcotic medicines (opiates) for pain phenobarbital ritonavir tramadol What if I miss a dose? If you miss a dose, take it as soon as you can. If it is almost time for your next dose, take only that dose. Do not take double or extra doses. Where should I keep my medicine? Keep out of the reach of children. This medicine can be abused. Keep your medicine in a safe place to protect it from theft. Do not share this medicine with anyone. Selling or giving away this medicine is dangerous and against the law. Store at room temperature between 15 and 30 degrees C (59 and 86 degrees F). Protect from light. Keep container tightly closed. Throw away any unused medicine after the expiration date. Discard unused medicine and used packaging carefully. Pets and children can be harmed if they find used or lost packages. What should I tell my health care provider before I take this medicine? They need to know if you have any of these conditions: brain tumor Crohn's disease, inflammatory bowel disease, or ulcerative colitis drink more than 3 alcohol-containing drinks per day drug abuse or addiction head injury heart or circulation problems kidney disease or problems going to the bathroom liver disease lung disease, asthma, or breathing problems an unusual or allergic reaction to acetaminophen, hydrocodone, other opioid analgesics, other medicines, foods, dyes, or preservatives or trying to get breast-feeding What should I watch for while using this medicine? Tell your doctor or health director medicare sales if your pain does not go away, if it gets worse, or if you have new or a different type of pain. You may develop tolerance to the medicine. Tolerance means that you will need a higher dose of the medicine for pain relief. Tolerance is normal and is expected if you take the medicine for a long time. Do not suddenly stop taking your medicine because you may develop a severe reaction. Your body becomes used to the medicine. This does NOT mean you are addicted. Addiction is a behavior related to getting and using a drug for a non-medical reason. If you have pain, you have a medical reason to take pain medicine. Your doctor will tell you how much medicine to take. If your doctor wants you to stop the medicine, the dose will be slowly lowered over time to avoid any side effects. You may get drowsy or dizzy when you first start taking the medicine or change doses. Do not drive, use machinery, or do anything that may be dangerous until you know how the medicine affects you. Stand or sit up slowly. There are different types of narcotic medicines (opiates) for pain. If you take more than one type at the same time, you may have more side effects. Give your health care provider a list of all medicines you use. Your doctor will tell you how much medicine to take. Do not take more medicine than directed. Call emergency for help if you have problems breathing. The medicine will cause constipation. Try to have a bowel movement at least every 2 to 3 days. If you do not have a bowel movement for 3 days, call your doctor or health director medicare sales. Too much acetaminophen can be very dangerous. Do not take Tylenol (acetaminophen) or medicines that contain acetaminophen with this medicine. Many non-prescription medicines contain acetaminophen. Always read the labels carefully. You have been given the following additional information: Radiculopathy, Cervical Hydrocodone Bitartrate, Acetaminophen Oral tablet No driving or operating machinery while taking medication. (Electronically signed by Shmuel Ureña MD 06/25/2016 9:17)
--- NOTE | 2016-06-25 09:17 | ED MAR SUMMARY ---
..... Medication Administration Record [facility] [address] [id number] Patient: AJIT HUMPHREYS Visit ID: [id number] 61y, M Weight: 106.5 kg Height/Length: 73 in BMI: 31 ALLERGIES: None
--- NOTE | 2016-06-25 09:17 | ED MED RECONCILIATION SUMMARY ---
Patient: AJIT HUMPHREYS Medication Reconciliation Report [facility] VisitID: [id number] [address] [place] [place] [address] 61y, M Registration Date/Time: 06/23/2016 Weight: 106.5 kg Height/Length: 73 in. BMI: 31.0 ALLERGIES: None The patient's Home Medications are listed below: CONTINUE TAKING THE FOLLOWING MEDICATIONS: BP MED CONTINUE TAKING THE FOLLOWING MEDICATIONS UNTIL YOU CHECK WITH YOUR PHYSICIAN: Sleep Medicine Oral The source(s) of the original Home Medication information: patient The following Medications were given to the patient in the Emergency Department: None. The following Medications were prescribed to the patient: Hydrocodone/APAP 5mg/325mg: take 1 to 2 orally every 6 hours as needed for pain. Dispense fifteen (15). No refills. -- Shmuel Ureña MD
== END 2016-06-23 19:09 | disposition home or self-care (01) ==
LOC: ED SRH 16:26
DX: M54.12 Radiculopathy, cervical region (principal); R29.818 Other symptoms and signs involving the nervous system; I10 Essential (primary) hypertension; Z79.899 Other long term (current) drug therapy
CPT/HCPCS: 90100; 90616; 92235; 92530; 92610; 94001; 94060; 95059